=== PATIENT | female | born 1940 | race American Indian/Alaskan Native ===

== ENCOUNTER 2018-02-14 15:56 | Inpatient (IN) | payer MEDICARE ==
--- NOTE | 2018-02-14 17:09 | Cat Scan Report ---
FINAL REPORT PROCEDURE: CT HEAD/BRAIN WO CON TECHNIQUE: Computerized tomography of the head was performed without contrast material. HISTORY: neuro deficits < 6hrs or sx present upon awakening COMPARISON: No prior studies are available for comparison. FINDINGS: Skull and scalp: Normal. Paranasal sinuses: Normal. Ventricles and subarachnoid spaces: Normal. Cerebrum: There is no evidence of acute intracranial hemorrhage, hematoma, infarction, midline displacement or mass. There are a few benign calcifications identified in the basal ganglia bilaterally. Slight atrophy is noted.. Cerebellum and brainstem: No evidence of hemorrhage, acute infarction or mass. Vasculature: Normal. Comments: None. IMPRESSION: There is no evidence of an acute intracranial process.
[2018-02-14 17:33] LABS: Basophils % (Auto) 0.7 % (0.0-1.8); Eosinophils # (Auto) 0.1 K/mm3 (0.0-0.4); Eosinophils % (Auto) 1.2 % (0.0-4.3); Hematocrit 37.5 % (30.3-42.9); Hemoglobin 12.4 gm/dl (10.1-14.3); Lymphocytes % (Auto) 30.1 % (13.4-35.0); Mean Corpuscular HGB Conc 33 % (30-34); Mean Corpuscular Hemoglobin 29 pg (28-32); Mean Corpuscular Volume 87 fl (79-97); Monocytes # (Auto) 0.5 K/mm3 (0.0-0.8); Monocytes % (Auto) 8.2 % (0.0-7.3); Platelet Count 246 K/mm3 (140-440); Red Blood Count 4.31 M/mm3 (3.65-5.03); Red Cell Distribution Width 12.7 % (13.2-15.2)
[2018-02-14 17:49] LABS: BUN/Creatinine Ratio 17; Blood Urea Nitrogen 12 mg/dL (7-17); Calcium 9.4 mg/dL (8.4-10.2); Hemolysis Index 21
[2018-02-14 17:53] LABS: Partial Thromboplastin Time 31.1 Sec. (24.2-36.6)
--- NOTE | 2018-02-14 18:17 | Emergency Department Report ---
ED Neuro Deficit HPI - General Chief Complaint: Neuro Symptoms/Deficit Stated Complaint: RAVEN/HARD TO SWALLOW Time Seen by Provider: 02/14/18 17:46 Source: EMS Mode of arrival: Stretcher Limitations: Physical Limitation - History of Present Illness Initial Comments: Pt is a 77 yo female with a history of diabetes and vertigo who presents with difficulty swallowing, dizziness, and left facial droop. Pt states she had been seen at [facility] and was discharged with Meclizine . Pt noted that the difficulty swallowing became worse last pm. Pt states initially she had difficulty with solids but was able to keep liquids down, but then noted that she was unable to keep down liquids. That is what brought pt in. Pt states she had no change in speech or peripheral weakness. -: Gradual - Related Data Home Medications: Home Medications Medication Instructions Recorded Confirmed Last Taken Meclizine [Antivert] 25 mg PO TID PRN 02/17/18 02/17/18 Unknown Metformin HCl [Metformin HCl ER] 750 mg PO BID 02/17/18 02/18/18 Unknown glipiZIDE XL [Glucotrol Xl] 10 mg PO DAILY 02/17/18 02/19/18 3 Days Ago ~02/16/18 Allergies/Adverse Reactions: Allergies Allergy/AdvReac Type Severity Reaction Status Date / Time acetaminophen AdvReac Vomiting Verified 02/14/18 16:32 [From Darvocet-N] propoxyphene [From Darvon] AdvReac Nausea Verified 02/14/18 16:32 ED Review of Systems ROS: Stated complaint: RAVEN/HARD TO SWALLOW Other details as noted in HPI ED Past Medical Hx - Past Medical History Previous Medical History?: Yes Hx Hypertension: Yes Hx Diabetes: Yes Additional medical history: Hx vertigo - Surgical History Past Surgical History?: Yes Additional Surgical History: Rt Lumpectomy; hysterectomy - Social History Smoking Status: Never Smoker Substance Use Type: Alcohol - Medications Home Medications: Home Medications Medication Instructions Recorded Confirmed Last Taken Type Meclizine [Antivert] 25 mg PO TID PRN 02/17/18 02/17/18 Unknown History Metformin HCl [Metformin HCl ER] 750 mg PO BID 02/17/18 02/18/18 Unknown History glipiZIDE XL [Glucotrol Xl] 10 mg PO DAILY 02/17/18 02/19/18 3 Days Ago History ~02/16/18 ED Neuro Physical Exam - General Limitations: Physical Limitation General appearance: alert - Head Head exam: Present: atraumatic, normocephalic - Eye Eye exam: Present: normal appearance, PERRL, EOMI - ENT ENT exam: Present: mucous membranes moist - Neck Neck exam: Present: normal inspection - Respiratory Respiratory exam: Present: normal lung sounds bilaterally. Absent: respiratory distress, wheezes, rales, rhonchi - GI/Abdominal GI/Abdominal exam: Present: soft, normal bowel sounds. Absent: distended, tenderness, guarding, rebound - Extremities Exam Extremities exam: Present: normal inspection, full ROM - Back Exam Back exam: Present: normal inspection - Neurological Exam Neurological exam: Present: alert, oriented X3, other (CN 7 palsy; gait not tested) - NIHSS 1a. Level of Consciousness: alert 1b. LOC Questions: answers correctly 1c. LOC Commands: performs tasks correctly 2. Best Gaze: normal 3. Visual: no visual loss 4. Facial Palsy: complete paralysis 5b. Motor Arm Right: no drift 5a. Motor Arm Left: no drift 6a. Motor Leg Left: no drift 6b. Motor Leg Right: no drift 7. Limb Ataxia: absent 8. Sensory: normal 9. Best Language: no aphasia 10. Dysarthria: normal 11. Extinction/Inattention: no abnormality Total Score: 3 Stroke Severity: Minor Stroke - Psychiatric Psychiatric exam: Present: normal affect, normal mood. Absent: homicidal ideation, suicidal ideation - Skin Skin exam: Present: warm, dry, intact, normal color ED Course Vital Signs 02/14/18 02/14/18 02/14/18 16:06 16:15 16:16 Temperature 98.3 F Pulse Rate 66 65 Pulse Rate [ Apical] Pulse Rate [ From Monitor] Respiratory 12 24 Rate Blood Pressure 149/67 158/66 Blood Pressure 158/66 [Left] O2 Sat by Pulse 89 98 100 Oximetry 02/14/18 02/14/18 02/14/18 16:29 16:30 16:58 Temperature 98.3 F Pulse Rate 65 64 Pulse Rate [ Apical] Pulse Rate [ From Monitor] Respiratory 24 13 Rate Blood Pressure 158/66 150/64 150/64 Blood Pressure 158/66 [Left] O2 Sat by Pulse 100 96 Oximetry 02/14/18 02/14/18 02/14/18 17:00 17:15 17:30 Temperature Pulse Rate 65 62 66 Pulse Rate [ Apical] Pulse Rate [ From Monitor] Respiratory 17 19 18 Rate Blood Pressure 150/60 148/62 148/62 Blood Pressure [Left] O2 Sat by Pulse 100 97 100 Oximetry 02/14/18 02/14/18 02/14/18 17:45 18:00 18:15 Temperature Pulse Rate 69 64 64 Pulse Rate [ Apical] Pulse Rate [ From Monitor] Respiratory 12 10 L 25 H Rate Blood Pressure 111/65 113/62 124/61 Blood Pressure [Left] O2 Sat by Pulse 100 100 99 Oximetry 02/14/18 02/14/18 02/14/18 18:30 18:46 19:00 Temperature Pulse Rate 80 75 63 Pulse Rate [ Apical] Pulse Rate [ From Monitor] Respiratory 17 15 19 Rate Blood Pressure 145/64 153/71 152/68 Blood Pressure [Left] O2 Sat by Pulse 90 99 98 Oximetry 02/14/18 02/14/1818 19:15 19:30 19:46 Temperature Pulse Rate 62 63 63 Pulse Rate [ Apical] Pulse Rate [ From Monitor] Respiratory 17 16 19 Rate Blood Pressure 141/66 131/76 121/67 Blood Pressure [Left] O2 Sat by Pulse 97 84 97 Oximetry 02/14/1818 02/14/18 20:00 20:16 20:30 Temperature Pulse Rate 71 66 64 Pulse Rate [ Apical] Pulse Rate [ From Monitor] Respiratory 13 12 17 Rate Blood Pressure 121/67 186/79 147/65 Blood Pressure [Left] O2 Sat by Pulse 73 L 88 98 Oximetry 02/14/18 02/14/18 02/14/18 20:45 21:00 21:16 Temperature Pulse Rate 60 64 63 Pulse Rate [ Apical] Pulse Rate [ From Monitor] Respiratory 18 16 22 Rate Blood Pressure 132/72 131/71 124/76 Blood Pressure [Left] O2 Sat by Pulse 99 86 97 Oximetry 02/14/18 02/14/18 02/14/18 21:30 21:45 22:00 Temperature Pulse Rate 63 62 64 Pulse Rate [ Apical] Pulse Rate [ From Monitor] Respiratory 17 15 16 Rate Blood Pressure 146/65 138/62 129/61 Blood Pressure [Left] O2 Sat by Pulse 98 98 Oximetry 02/14/18 02/14/18 02/14/18 22:16 22:30 22:45 Temperature Pulse Rate 73 71 63 Pulse Rate [ Apical] Pulse Rate [ From Monitor] Respiratory 22 18 15 Rate Blood Pressure 110/89 143/63 155/68 Blood Pressure [Left] O2 Sat by Pulse 97 99 95 Oximetry 02/14/18 02/14/18 02/14/18 23:00 23:15 23:30 Temperature Pulse Rate 65 70 71 Pulse Rate [ Apical] Pulse Rate [ From Monitor] Respiratory 19 9 L 12 Rate Blood Pressure 157/71 139/75 146/71 Blood Pressure [Left] O2 Sat by Pulse 98 63 L 92 Oximetry 02/14/18 02/15/18 02/15/18 23:45 00:00 00:15 Temperature Pulse Rate 61 63 59 L Pulse Rate [ Apical] Pulse Rate [ From Monitor] Respiratory 18 16 17 Rate Blood Pressure 157/71 152/69 140/62 Blood Pressure [Left] O2 Sat by Pulse 98 100 97 Oximetry 02/15/18 02/15/18 02/15/18 00:30 00:45 01:00 Temperature Pulse Rate 69 67 63 Pulse Rate [ Apical] Pulse Rate [ From Monitor] Respiratory 18 16 15 Rate Blood Pressure 149/58 148/68 151/71 Blood Pressure [Left] O2 Sat by Pulse 100 99 95 Oximetry 02/15/18 02/15/18 02/15/18 01:05 01:15 01:30 Temperature Pulse Rate 85 60 63 Pulse Rate [ Apical] Pulse Rate [ From Monitor] Respiratory 16 17 Rate Blood Pressure 141/65 139/66 Blood Pressure [Left] O2 Sat by Pulse 96 92 Oximetry 02/15/18 02/15/18 01:45 02:00 Temperature Pulse Rate 68 Pulse Rate [ 85 Apical] Pulse Rate [ 85 From Monitor] Respiratory 15 18 Rate Blood Pressure 132/73 Blood Pressure [Left] O2 Sat by Pulse 93 Oximetry - Lab Data Result diagrams: 02/16/18 06:07 02/16/18 06:07 Lab Results 02/14/18 02/14/18 02/14/18 Range/Units 17:12 17:12 17:12 WBC 6.6 (4.5-11.0) K/mm3 RBC 4.31 (3.65-5.03) M/mm3 Hgb 12.4 (10.1-14.3) gm/dl Hct 37.5 (30.3-42.9) % MCV 87 (79-97) fl MCH 29 (28-32) pg MCHC 33 (30-34) % RDW 12.7 L (13.2-15.2) % Plt Count 246 (140-440) K/mm3 Lymph % (Auto) 30.1 (13.4-35.0) % [place] % (Auto) 8.2 H (0.0-7.3) % Eos % (Auto) 1.2 (0.0-4.3) % Baso % (Auto) 0.7 (0.0-1.8) % Lymph # 2.0 (1.2-5.4) K/mm3 [place] # 0.5 (0.0-0.8) K/mm3 Eos # 0.1 (0.0-0.4) K/mm3 Baso # 0.0 (0.0-0.1) K/mm3 Seg Neutrophils % 59.8 (40.0-70.0) % Seg Neutrophils # 4.0 (1.8-7.7) K/mm3 PT 12.0 L (12.2-14.9) Sec. INR 0.85 L (0.87-1.13) APTT 31.1 (24.2-36.6) Sec. Thrombin Time (15.1-19.6) Sec. Sodium 138 (137-145) mmol/L Potassium 4.2 (3.6-5.0) mmol/L Chloride 99.3 (98-107) mmol/L Carbon Dioxide 22 (22-30) mmol/L Anion Gap 21 mmol/L BUN 12 (7-17) mg/dL Creatinine 0.7 (0.7-1.2) mg/dL Estimated GFR > 60 ml/min BUN/Creatinine Ratio 17 % Glucose 208 H (65-100) mg/dL POC Glucose (70-105) Hemoglobin A1c (4-6) % Calcium 9.4 (8.4-10.2) mg/dL Troponin T < 0.010 (0.00-0.029) ng/mL 02/14/18 02/14/18 02/14/18 Range/Units 17:12 17:12 17:14 WBC (4.5-11.0) K/mm3 RBC (3.65-5.03) M/mm3 Hgb (10.1-14.3) gm/dl Hct (30.3-42.9) % MCV (79-97) fl MCH (28-32) pg MCHC (30-34) % RDW (13.2-15.2) % Plt Count (140-440) K/mm3 Lymph % (Auto) (13.4-35.0) % [place] % (Auto) (0.0-7.3) % Eos % (Auto) (0.0-4.3) % Baso % (Auto) (0.0-1.8) % Lymph # (1.2-5.4) K/mm3 [place] # (0.0-0.8) K/mm3 Eos # (0.0-0.4) K/mm3 Baso # (0.0-0.1) K/mm3 Seg Neutrophils % (40.0-70.0) % Seg Neutrophils # (1.8-7.7) K/mm3 PT (12.2-14.9) Sec. INR (0.87-1.13) APTT (24.2-36.6) Sec. Thrombin Time 17.3 (15.1-19.6) Sec. Sodium (137-145) mmol/L Potassium (3.6-5.0) mmol/L Chloride (98-107) mmol/L Carbon Dioxide (22-30) mmol/L Anion Gap mmol/L BUN (7-17) mg/dL Creatinine (0.7-1.2) mg/dL Estimated GFR ml/min BUN/Creatinine Ratio % Glucose (65-100) mg/dL POC Glucose 225 H (70-105) Hemoglobin A1c 9.0 H (4-6) % Calcium (8.4-10.2) mg/dL Troponin T (0.00-0.029) ng/mL Critical care attestation.: If time is entered above; I have spent that time in minutes in the direct care of this critically ill patient, excluding procedure time. ED Disposition Disposition: OP ADMIT IP TO THIS HOSP Is pt being admited?: Yes Does the pt Need Aspirin: No Condition: Stable Time of Disposition: 21:03
[2018-02-14 18:45] LABS: INR 0.85 (0.87-1.13)
[2018-02-15] MEDS ORDERED: TYLENOL PO PRN (00:01)
[2018-02-15] MEDS ORDERED: SODIUM CHLORIDE FLUSH SYRINGE 10 ML IV PRN ×2 (00:01→03:35)
--- NOTE | 2018-02-15 00:01 | Event Note ---
Date: 02/14/18 See Dictated H/p in reports PICA -posterior inferior cerebellar artery stroke to be ruled out
[2018-02-15] MEDS ORDERED: APRESOLINE IV PRN (03:35)
[2018-02-15] MEDS: ZOFRAN IV PRN ×3 (04:36→21:58)
[2018-02-15] MEDS: D5NS 1,000 ML IV SCH (04:36)
--- NOTE | 2018-02-15 04:47 | History and Physical Report ---
CHIEF COMPLAINT: 1. Difficulty swallowing. 2. Right-sided facial weakness. 3. Double vision. HISTORY OF PRESENT ILLNESS: A 77-year-old female with history of hypertension, diabetes, presents with right-sided facial weakness, also double vision and with difficulty swallowing. The patient is unable to swallow at all. No dysarthria. The patient has nasal regurgitation of fluids. Also, some ptosis of the left eye. Sudden onset over the last few hours. The patient is a poor historian. PAST MEDICAL HISTORY: As mentioned, significant for hypertension, diabetes, vertigo. PAST SURGICAL HISTORY: Significant for right lumpectomy and hysterectomy. SOCIAL HISTORY: Does not smoke. Alcohol occasionally. FAMILY HISTORY: Significant for hypertension. CURRENT MEDICATIONS: None mentioned. REVIEW OF SYSTEMS: Significant for difficulty swallowing. Right facial weakness, double vision and difficulty walking. Otherwise, review of systems is essentially negative. A 14-point review of systems done, otherwise negative. PHYSICAL EXAMINATION: GENERAL: Elderly female, cooperative during examination. VITAL SIGNS: Blood pressure is 148/68, temperature is 98, pulse is 67, respirations are 16. HEENT: Remarkable for ptosis on the left side, right facial palsy present. Also, difficulty swallowing. Aspirating. No nasal regurgitation or fluids present. NECK: Supple, no lymphadenopathy, no thyromegaly, no carotid artery bruit. LUNGS: Clear to auscultation and percussion. Good air entry. CARDIOVASCULAR: S1, S2 heard. No gallop, no murmur, no rub. Apical impulse in left fifth intercostal space and midclavicular line. ABDOMEN: Soft and benign. Bowel sounds are normal. Hernial orifices are normal. EXTREMITIES: Good pedal pulses. No pedal edema. CENTRAL NERVOUS SYSTEM: Alert and oriented x 4. Right facial palsy present. Left eye ptosis present. 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 Diplopia present on especially towards the right gaze. Not sure the patient is saying it rightly or not. Reflexes are brisk. Gait, slightly ataxic. Cranial nerves are otherwise normal. SKIN: Normal. LABORATORY DATA: Significant for white count of 6600, H and H are 12.4 and 37.5, platelet count is 246,000. Glucose is 208, A1c is 9.0. ASSESSMENT AND PLAN: 1. Acute cerebrovascular accident, probably involving the cerebellar region because of the ataxia and dysphagia and the right facial palsy and Antione syndrome. 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 We will defer to Neurology to make the final diagnosis. Also order MRI/MRA, echocardiogram, and carotid duplex scan. Physical therapy ordered. Occupational therapy ordered. NG tube to be inserted if dysphagia is prolonged and fails a swallow screen. 2. Hypertension. Blood pressure is normal at this point. We will trend the blood pressure and start the patient on losartan if necessary. 3. Diabetes, uncontrolled. A1c is 9.0. Will initiate on NovoLog mix 70/30 at 15 units in the morning, 15 units in the evening. Adjust the dosage accordingly. Accu-Cheks in the meantime. Coverage in the meantime. 4. Deep venous thrombosis prophylaxis, heparin 5000 q. 12. In summary, a stroke workup ordered for MRI/MRA, echocardiogram, and carotid duplex scan. Also, Neurology consult ordered. JOB# [id number] VSM/NTS
[2018-02-15] MEDS: HumaLOG SUB-Q SCH ×4 (06:30→19:01)
--- NOTE | 2018-02-15 11:45 | Progress Note ---
Assessment and Plan Assessment and plan: Mr. Cruz is 77 yo woman with a history of dm type 2 and hypertension who presented with right sided weakness, facial droop, ataxia and difficulty swallowing. CT head unremarkable a1c 9.0 -Suspect acute CVA: continue neurology check, mri pending, Neurology evaluation pending, treat with rectal asa and statin once able to swallow, Echo pending, npo and get speech evaluation -Uncontrolled hypertension: permissive elevated bp -Poorly controlled DM: add ssi, on d5nss due to npo, expected elevated blood glucose, monitor closely dvt prophylaxis: add sq heparin. History Interval history: Patient was seen and examined. Follow-up on current diagnosis of right sided weakness, left facial drop, difficult swallowing. Overnight uneventful. Patient denies any chest pain, shortness breath, nausea/vomiting or severe headaches. Imaging, nursing note, chart, labs and old chart reviewed. Discussed with patient. Hospitalist Physical - Physical exam Narrative exam: GEN: WDWN, NAD, Awake, Alert, Orientated HEENT: NCAT, EOMI, PERRL, OP Clear NECK: supple, no adenopathy, no thyromegaly, no JVD CVS/HEART: RRR, normal S1S2, pulses present bilaterally CHEST/LUNGS: CTA B, Symmetrical chest expansion, good air entry bilaterally GI/Abdomen: soft, NTND, good bowel sounds, no guarding or rebound /Bladder: no suprapubic tenderness, no CVA or paraspinal tenderness EXT/Skin: no c/c/e, no obvious rash MSK: FROM x 4 Neuro: CN 2-12 grossly intact except swallowing, facial droop and abd gait no new focal deficits Psych: calm - Constitutional Vitals: Temp Pulse Resp BP Pulse Ox 97.8 F 62 16 155/71 100 02/15/18 08:02 02/15/18 08:02 02/15/18 08:02 02/15/18 08:02 02/15/18 08:02 Results - Labs CBC & Chem 7: 02/14/18 17:12 02/14/18 17:12 Labs: Laboratory Last Values WBC 6.6 K/mm3 (4.5-11.0) 02/14/18 17:12 RBC 4.31 M/mm3 (3.65-5.03) 02/14/18 17:12 Hgb 12.4 gm/dl (10.1-14.3) 02/14/18 17:12 Hct 37.5 % (30.3-42.9) 02/14/18 17:12 MCV 87 fl (79-97) 02/14/18 17:12 MCH 29 pg (28-32) 02/14/18 17:12 MCHC 33 % (30-34) 02/14/18 17:12 RDW 12.7 % (13.2-15.2) L 02/14/18 17:12 Plt Count 246 K/mm3 (140-440) 02/14/18 17:12 Lymph % (Auto) 30.1 % (13.4-35.0) 02/14/18 17:12 [place] % (Auto) 8.2 % (0.0-7.3) H 02/14/18 17:12 Eos % (Auto) 1.2 % (0.0-4.3) 02/14/18 17:12 Baso % (Auto) 0.7 % (0.0-1.8) 02/14/18 17:12 Lymph # 2.0 K/mm3 (1.2-5.4) 02/14/18 17:12 [place] # 0.5 K/mm3 (0.0-0.8) 02/14/18 17:12 Eos # 0.1 K/mm3 (0.0-0.4) 02/14/18 17:12 Baso # 0.0 K/mm3 (0.0-0.1) 02/14/18 17:12 Seg Neutrophils % 59.8 % (40.0-70.0) 02/14/18 17:12 Seg Neutrophils # 4.0 K/mm3 (1.8-7.7) 02/14/18 17:12 PT 12.0 Sec. (12.2-14.9) L 02/14/18 17:12 INR 0.85 (0.87-1.13) L 02/14/18 17:12 APTT 31.1 Sec. (24.2-36.6) 02/14/18 17:12 Thrombin Time 17.3 Sec. (15.1-19.6) 02/14/18 17:12 Sodium 138 mmol/L (137-145) 02/14/18 17:12 Potassium 4.2 mmol/L (3.6-5.0) 02/14/18 17:12 Chloride 99.3 mmol/L (98-107) 02/14/18 17:12 Carbon Dioxide 22 mmol/L (22-30) 02/14/18 17:12 Anion Gap 21 mmol/L 02/14/18 17:12 BUN 12 mg/dL (7-17) 02/14/18 17:12 Creatinine 0.7 mg/dL (0.7-1.2) 02/14/18 17:12 Estimated GFR > 60 ml/min 02/14/18 17:12 BUN/Creatinine Ratio 17 % 02/14/18 17:12 Glucose 208 mg/dL (65-100) H 02/14/18 17:12 POC Glucose 225 (70-105) H 02/14/18 17:14 Hemoglobin A1c 9.0 % (4-6) H 02/14/18 17:12 Calcium 9.4 mg/dL (8.4-10.2) 02/14/18 17:12 Troponin T < 0.010 ng/mL (0.00-0.029) 02/14/18 17:12
[2018-02-15] MEDS: SODIUM CHLORIDE FLUSH SYRINGE 10 ML IV SCH ×2 (13:28→21:49)
[2018-02-15] MEDS: ASPIRIN PR SCH (13:29)
--- NOTE | 2018-02-15 14:42 | Magnetic Resonance Report ---
MRI OF THE BRAIN WITHOUT CONTRAST: HISTORY: CVA PROCEDURE: Multiplanar, multisequence MR imaging of the brain without IV contrast was performed. FINDINGS: Compared to the CT head dated 02/14/18. A 4 x 8mm focus of diffusion restriction is identified in the posterior left jaguar on diffusion image 11. No additional areas of diffusion restriction are identified. The remaining brain parenchyma is within normal limits on all sequences. Mild cortical atrophy is noted which appears age-appropriate. No evidence for hemorrhage, mass, chronic infarct or extra-axial fluid collection. The midline structures are central. The basal cisterns are patent. Normal ventricular size. The orbital cavities and sella turcica demonstrate no abnormality. The visualized paranasal sinuses and mastoid air cells are well aerated. IMPRESSION: Subacute lacunar infarct in the left jaguar. Mild cortical atrophy.
--- NOTE | 2018-02-15 14:43 | Magnetic Resonance Report ---
MRA HEAD WITHOUT CONTRAST HISTORY: Stroke. [id number] imaging with MIP reformations of the [place] of [place] is submitted. NASCET criteria were utilized. The arteries appear patent and free of hemodynamically significant stenosis, aneurysm or dissection. Moderate atherosclerotic disease is suspected in the supraclinoid ICAs and proximal right EDGER TAILER. IMPRESSION: No large vessel occlusion or aneurysm is identified.
--- NOTE | 2018-02-15 15:40 | Consultation ---
History of Present Illness Consult date: 02/15/18 Requesting physician: GERMAN GUSMAN Reason for Consult: stroke Chief complaint: dysphagia, slurring, facial weakness, left eye ptosis History of present illness: This 77-year-old right-handed -[place] female per Dr. Gusman on admission : "presents with right-sided facial weakness, also double vision and with difficulty swallowing. The patient is unable to swallow at all. No dysarthria. The patient has nasal regurgitation of fluids. Also, some ptosis of the left eye. Sudden onset over the last few hours. The patient is a poor historian." She states on Monday 4 PM while getting shoes measured for her, she felt spinning and thought she might have low blood sugar so she ate some candy. She drove herself home. Vertigo improved such that it only happened if she moved. She went to [facility] however where they did a CT scan that was negative but no MRI, and sent her home. She noticed difficulty swallowing the next morning at 7 AM. She had a swollen left lip from having bitten it a couple of times earlier in the week hitting it by accident when the elastic of her sleeve for lymphedema snapped. Blood pressure machine at home was not working. She began having problems with choking around 3 PM yesterday and called 911 and was taken here. Double vision was only noticed here she says when looking to the right. She has had some slurring of speech which is still present but improved. She's had no new numbness or tingling. She has had some nausea but no real vomiting though continually has to spit up mucus. Echocardiogram with bubbles has been done but not yet read. Duplex of carotids was normal with antegrade vertebral flow. CT scan showed moderate cerebellar and mild to moderate cerebral atrophy and possibly an old lacune in the left internal capsule on my review. MRA shows some narrowing of the right siphon and segmental narrowing in 2 spots of the right posterior cerebral artery and 1 location in the proximal left posterior cerebral artery and then also distally in the left posterior cerebral artery. The left vertebral artery is dominant. MRI shows mild cerebellar and mild to moderate cerebral atrophy but positive for diffusion in the dorsal inferior jaguar medially. No other strokes on FLAIR and negative GRE in this noncontrast scan. Past History Past Medical History: cancer (of breast with lumpectomy and lymph node removal and radiation, causing lymphedema on the right), diabetes (takes metformin and glipizide). 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 denies: smoking, alcohol abuse (none), prescription drug abuse, IV drug use (never illicit drugs) Family history: diabetes (Sr.), other (negative for epilepsy). denies: hypertension, stroke Medications and Allergies Allergies Allergy/AdvReac Type Severity Reaction Status Date / Time acetaminophen AdvReac Vomiting Verified 02/14/18 16:32 [From Darvocet-N] propoxyphene [From Darvon] AdvReac Nausea Verified 02/14/18 16:32 Home Medications Medication Instructions Recorded Confirmed Last Taken Type Unobtainable 02/15/18 02/15/18 Unknown History Active Meds: Active Medications Acetaminophen (Tylenol) 650 mg PO Q4H PRN PRN Reason: Pain MILD(1-3)/Fever >100.5/YOUNG Aspirin (Aspirin) 300 mg [place] QDAY [facility] Last Admin: 02/15/18 13:29 Dose: 300 mg Heparin Sodium (Porcine) (Heparin) 5,000 unit SUB-Q Q12HR [facility] Hydralazine HCl (Apresoline) 5 mg IV Q6H PRN PRN Reason: Keep SBP between 160-185 mm Hg Dextrose/Sodium Chloride (D5ns) 1,000 mls @ 100 mls/hr IV DIRECT SEUN Last Admin: 02/15/18 04:36 Dose: 100 mls/hr Insulin Human Lispro (Humalog) 0 unit SUB-Q Q6HR [facility]; Protocol Last Admin: 02/15/18 13:22 Dose: Not Given Morphine Sulfate (Morphine) 2 mg IV Q4H PRN PRN Reason: Pain, Moderate (4-6) Ondansetron HCl (Zofran) 4 mg IV Q8H PRN PRN Reason: Nausea And Vomiting Last Admin: 02/15/18 13:26 Dose: 4 mg Pravastatin Sodium (Pravachol) 40 mg PO QHS [facility] Sodium Chloride (Sodium Chloride Flush Syringe 10 Ml) 10 ml IV BID [facility] Last Admin: 02/15/18 13:28 Dose: 10 ml Sodium Chloride (Sodium Chloride Flush Syringe 10 Ml) 10 ml IV PRN PRN PRN Reason: LINE FLUSH Sodium Chloride (Sodium Chloride Flush Syringe 10 Ml) 10 ml IV PRN PRN PRN Reason: LINE FLUSH Review of Systems All systems: negative (no headaches or dizziness or snoring though takes a nap for an hour after eating. No dosing at other times and not sleepy driving. Normal memory for age, may misplace things temporarily.) Physical Examination - Vital Signs Vital Signs: Vital Signs Pulse Ox 89 02/14/18 16:06 - Physical Exam Narrative exam: General Appearance: well developed well nourished (per BMI) late 70s - [place] female in [facility], with basin into which she spits from time to time, seen with her son at the bedside. HEENT: atraumatic, normocephalic; no bruits, 2+ Diana without soreness or induration or enlargement, sclerae nonicteric. Oropharynx pink and moist. No TMJ click, no TMJ or sinus soreness to pressure or percussion. Neck: supple, no bruits. Heart: no murmur or extra sounds. Extremities: no clubbing, cyanosis but some lymphedema apparently in the right arm, no peripheral edema in the legs. 2+ right and 1+ left dorsalis pedis pulses. Neurologic Exam: Mental Status: Awake, alert, oriented to 17 of February was that of but knows the day of the week and year, speech is clear, names pen and point of pen , and abstracts well. Names President but not Measurement Supervisor, serial 7's with one error and gives 5+7 = 15, no right-left confusion but substitutes index finger for thumb, gets 2 of 3 objects at 3 minutes, spells WORLD backwards omitting the R and she mentions but then won't try it again. A little slurring on "no ifs ands or buts". Cranial Nerves: mathis full, can't see disc due to inability to fixate well, PERRLA, EOMs full horizontal gaze evoked nystagmus to left lateral gaze with the quick beat to the left and some rotary counter clockwise nystagmus to right superior gaze, vertical diplopia to right lateral and right upward gaze, facial sensation intact to pinprick and light touch, left ptosis but no Antione's, peripheral left facial weakness and face draws over to the right with speech, Rankin is midline, palate rises symmetrically to phonation and gags are positive , shoulder shrug is 5 X 2, tongue protrudes midline. Cerebellar: finger to nose and heel to hardin are normal. Sensory: intact to light touch, pinprick, and vibrations. Double simultaneous stimulation is intact. Motor Exam Upper Extremities: no drift or pronation, Louis intact. Stator Plate Washer are 5 X 2, tone is normal. No atrophy or fasciculations are noted visually. Motor Exam Lower Extremities: no leg lag, quadriceps and anterior tibials and gastrocnemius are 5 X 2. Louis intact. Tone is normal. No atrophy or fasciculations are noted visually. Reflexes: Palmomental, snout and jaw jerk are negative. Triceps, biceps are and brachioradialis are 1 bilaterally. Nesha's is negative bilaterally. Knee jerks are 2 and ankle jerks are 0 bilaterally, remaining 0 right and becoming trace left with reinforcement and without clonus. Toes are upgoing right and downgoing left to Babinski testing. Results - Laboratory Findings CBC and BMP: 02/14/18 17:12 02/14/18 17:12 Abnormal Lab Findings: Abnormal Labs 02/14/18 02/14/18 02/14/18 17:12 17:12 17:12 RDW 12.7 L [place] % (Auto) 8.2 H PT 12.0 L INR 0.85 L Glucose 208 H POC Glucose Hemoglobin A1c 02/14/18 02/14/18 17:12 17:14 RDW [place] % (Auto) PT INR Glucose POC Glucose 225 H Hemoglobin A1c 9.0 H Assessment and Plan Impression: 1. Brainstem stroke 2. Diabetes Plan: 1. MRA of neck with fat sat axial T1 with and without dye to look for evidence of vertebral artery dissection. 2. Rectal aspirin until she can swallow. 3. Modified barium swallow as suggested by speech pathologist, hopefully with the speech pathologist monitoring it. 4. I explained strokes can improve all away out to 2 years but often improve some sooner and pointed out that she is saying her speech has improved. 5. I ordered pravastatin 40 mg to begin once she can swallow safely. Might need higher dose if her LDL is over 180. The goal is to get it to be below 100. 6. I showed her and her son printed images of her stroke. 7. Will order ESR and CRP. 8. Await reading of echo with bubbles. 45 minutes spent with this patient including review of 100s of MRI and MRA images. Will sign off. If MRA neck shows dissection, I will come back to explain that to her. Thank you for an interesting consultation on this unfortunate late 70s lady.
--- NOTE | 2018-02-15 19:53 | Magnetic Resonance Report ---
FINAL REPORT PROCEDURE: MR MRA/MRV NECK WO/W CON TECHNIQUE: MR angiography of the cervical carotid and vertebral arteries was performed after the IV injection of paramagnetic contrast. The source images were reconstructed in various views using maximum intensity projection. HISTORY: stroke COMPARISON: No prior studies are available for comparison. FINDINGS: Common carotid arteries: Normal. Internal carotid arteries: Normal. External carotid arteries: Normal. Vertebral arteries: The right vertebral artery is not visualized/is occluded throughout its course, except just proximal to the basilar artery. IMPRESSION: Nonvisualized/occluded right vertebral artery throughout its course except just proximal to the basilar artery
[2018-02-15] MEDS: PRAVACHOL PO SCH (21:48)
[2018-02-16] MEDS: D5NS 1,000 ML IV SCH (00:10)
[2018-02-16] MEDS: HumaLOG SUB-Q SCH ×3 (06:28→17:14)
[2018-02-16 06:37] LABS: Basophils % (Auto) 0.5 % (0.0-1.8); Eosinophils # (Auto) 0.1 K/mm3 (0.0-0.4); Hematocrit 36.5 % (30.3-42.9); Lymphocytes # (Auto) 2.3 K/mm3 (1.2-5.4); Lymphocytes % (Auto) 37.6 % (13.4-35.0); Mean Corpuscular HGB Conc 33 % (30-34); Mean Corpuscular Hemoglobin 29 pg (28-32); Mean Corpuscular Volume 87 fl (79-97); Monocytes # (Auto) 0.7 K/mm3 (0.0-0.8); Platelet Count 242 K/mm3 (140-440); Red Blood Count 4.18 M/mm3 (3.65-5.03); Red Cell Distribution Width 13.2 % (13.2-15.2)
[2018-02-16 07:08] LABS: Alanine Aminotransferase 11 units/L (7-56); Albumin 3.5 g/dL (3.9-5); BUN/Creatinine Ratio 19; Blood Urea Nitrogen 13 mg/dL (7-17); Calcium 8.8 mg/dL (8.4-10.2); Chol/HDL Ratio 2.85 %; HDL Cholesterol 74 mg/dL (40-59); Hemolysis Index 14; LDL Cholesterol,Direct 127 mg/dL (50-130)
[2018-02-16] MEDS: SODIUM CHLORIDE FLUSH SYRINGE 10 ML IV SCH ×2 (11:50→22:53)
[2018-02-16] MEDS: HEPARIN SUB-Q SCH ×2 (11:50→22:54)
[2018-02-16] MEDS: ASPIRIN PR SCH (11:50)
--- NOTE | 2018-02-16 13:05 | Fluoroscopy Report ---
MODIFIED BARIUM SWALLOW INDICATION: Dysphagia, brainstem stroke. COMPARISON: None similar. FINDINGS: Fluoroscopy with video provided by radiologist for speech therapist to assess the swallowing mechanism. Food items of various consistencies given. Patient though failed to swallow well with vallecular and piriform sinus pooling. Multiple radiopaque dental fillings. Mild cervical spondylosis. One interpretable image recorded. IMPRESSION: Modified barium swallow, as described. Please refer to detailed report from speech pathologist. Thank you for the opportunity to participate in this patient's care.
--- NOTE | 2018-02-16 15:41 | Progress Note ---
Assessment and Plan Assessment and plan: Mr. Cruz is 77 yo woman with a history of dm type 2 and hypertension who presented with right sided weakness, facial droop, ataxia and difficulty swallowing. MR brain; Subacute lacunar infarct in the left jaguar. Mild cortical atrophy. MRA head; No large vessel occlusion or aneurysm is identified. MRA neck; Nonvisualized/occluded right vertebral artery throughout its course except just proximal to the basilar artery a1c 9.0 -acute CVA: , Neurology input appreciated, no dissection on mra neck, treat with rectal asa and statin once able to swallow, Echo unremarkable, continue pt and ot -dysphagia; continue NPO; failed mbs, continue s/s therapy -Uncontrolled hypertension: permissive elevated bp, optimize bp meds -Poorly controlled DM: ssi and lantus, on d5nss due to npo, expected elevated blood glucose, monitor closely dvt prophylaxis: add sq heparin. if no improvement with swallowing by next week, will discuss PEG tube with patient and her son case discussed with patient and son, son is reached at [phone], Roney Cruz History Interval history: The patient reports improvement in facial droop, expressive aphasia has now resolved. She still having dysphasia even to her own saliva Hospitalist Physical - Physical exam Narrative exam: General.: Appears well, no distress, nontoxic HEENT: Moist mucous membranes, extraocular muscles intact, no lymphadenopathy Neck: supple Cardiac: S1-S2 heard Lungs: clear to auscultation bilaterally Abdomen: soft , nontender, nondistended, bowel sounds positive Extremities: no edema clubbing or cyanosis Skin: no rash or lesions Neurologic: Left facial droop, as patient constantly suctioning her mouth due to dysphasia, left ptosis Psych: appropriate behavior, appropriate mood, corporative, judgment intact - Constitutional Vitals: Temp Pulse Resp BP Pulse Ox 97.1 F L 74 18 149/73 100 02/16/18 04:01 02/16/18 10:00 02/16/18 10:00 02/16/18 07:23 02/16/18 10:00 Results - Labs CBC & Chem 7: 02/16/18 06:07 02/16/18 06:07 Labs: Laboratory Last Values WBC 6.0 K/mm3 (4.5-11.0) 02/16/18 06:07 RBC 4.18 M/mm3 (3.65-5.03) 02/16/18 06:07 Hgb 12.0 gm/dl (10.1-14.3) 02/16/18 06:07 Hct 36.5 % (30.3-42.9) 02/16/18 06:07 MCV 87 fl (79-97) 02/16/18 06:07 MCH 29 pg (28-32) 02/16/18 06:07 MCHC 33 % (30-34) 02/16/18 06:07 RDW 13.2 % (13.2-15.2) 02/16/18 06:07 Plt Count 242 K/mm3 (140-440) 02/16/18 06:07 Lymph % (Auto) 37.6 % (13.4-35.0) H 02/16/18 06:07 [place] % (Auto) 11.0 % (0.0-7.3) H 02/16/18 06:07 Eos % (Auto) 2.0 % (0.0-4.3) 02/16/18 06:07 Baso % (Auto) 0.5 % (0.0-1.8) 02/16/18 06:07 Lymph # 2.3 K/mm3 (1.2-5.4) 02/16/18 06:07 [place] # 0.7 K/mm3 (0.0-0.8) 02/16/18 06:07 Eos # 0.1 K/mm3 (0.0-0.4) 02/16/18 06:07 Baso # 0.0 K/mm3 (0.0-0.1) 02/16/18 06:07 Seg Neutrophils % 48.9 % (40.0-70.0) 02/16/18 06:07 Seg Neutrophils # 2.9 K/mm3 (1.8-7.7) 02/16/18 06:07 PT 12.0 Sec. (12.2-14.9) L 02/14/18 17:12 INR 0.85 (0.87-1.13) L 02/14/18 17:12 APTT 31.1 Sec. (24.2-36.6) 02/14/18 17:12 Thrombin Time 17.3 Sec. (15.1-19.6) 02/14/18 17:12 Sodium 141 mmol/L (137-145) 02/16/18 06:07 Potassium 3.7 mmol/L (3.6-5.0) 02/16/18 06:07 Chloride 104.1 mmol/L (98-107) 02/16/18 06:07 Carbon Dioxide 24 mmol/L (22-30) 02/16/18 06:07 Anion Gap 17 mmol/L 02/16/18 06:07 BUN 13 mg/dL (7-17) 02/16/18 06:07 Creatinine 0.7 mg/dL (0.7-1.2) 02/16/18 06:07 Estimated GFR > 60 ml/min 02/16/18 06:07 BUN/Creatinine Ratio 19 % 02/16/18 06:07 Glucose 260 mg/dL (65-100) H 02/16/18 06:07 POC Glucose 216 (70-105) H 02/16/18 13:29 Hemoglobin A1c 9.0 % (4-6) H 02/14/18 17:12 Calcium 8.8 mg/dL (8.4-10.2) 02/16/18 06:07 Magnesium 1.80 mg/dL (1.7-2.3) 02/16/18 06:07 Total Bilirubin 0.60 mg/dL (0.1-1.2) 02/16/18 06:07 AST 14 units/L (5-40) 02/16/18 06:07 ALT 11 units/L (7-56) 02/16/18 06:07 Alkaline Phosphatase 63 units/L (35-129) 02/16/18 06:07 Troponin T < 0.010 ng/mL (0.00-0.029) 02/14/18 17:12 Total Protein 6.7 g/dL (6.3-8.2) 02/16/18 06:07 Albumin 3.5 g/dL (3.9-5) L 02/16/18 06:07 Albumin/Globulin Ratio 1.1 % 02/16/18 06:07 Triglycerides 131 mg/dL (2-149) 02/16/18 06:07 Cholesterol 211 mg/dL (50-199) H 02/16/18 06:07 LDL Cholesterol Direct 127 mg/dL (50-130) 02/16/18 06:07 HDL Cholesterol 74 mg/dL (40-59) H 02/16/18 06:07 Cholesterol/HDL Ratio 2.85 % 02/16/18 06:07
[2018-02-16] MEDS: PRAVACHOL PO SCH (22:52)
[2018-02-16] MEDS: LANTUS SUB-Q SCH (22:52)
[2018-02-16] MEDS: ISOPTO TEARS 0.5% OU SCH (23:04)
[2018-02-16] MEDS: ZOFRAN IV PRN (23:05)
[2018-02-17] MEDS: D5NS 1,000 ML IV SCH ×3 (01:59→23:13)
[2018-02-17] MEDS: HumaLOG SUB-Q SCH ×4 (06:47→17:17)
[2018-02-17] MEDS: ISOPTO TEARS 0.5% OU SCH ×3 (08:00→23:10)
[2018-02-17] MEDS: SODIUM CHLORIDE FLUSH SYRINGE 10 ML IV SCH ×2 (10:56→23:13)
[2018-02-17] MEDS: HEPARIN SUB-Q SCH ×2 (10:56→23:11)
[2018-02-17] MEDS: ASPIRIN PR SCH (10:56)
--- NOTE | 2018-02-17 12:07 | Progress Note ---
Assessment and Plan Assessment and plan: Mr. Cruz is 77 yo woman with a history of dm type 2 and hypertension who presented with right sided weakness, facial droop, ataxia and difficulty swallowing. MR brain; Subacute lacunar infarct in the left jaguar. Mild cortical atrophy. MRA head; No large vessel occlusion or aneurysm is identified. MRA neck; Nonvisualized/occluded right vertebral artery throughout its course except just proximal to the basilar artery carotid dopplers; CAROTID DUPLEX DONE. <50% STENOSIS BILATERALLY BY DOPPLER VELOCITIES. ANTEGRADE VERTEBRAL ARTERY FLOW BILATERALLY. a1c 9.0 -acute CVA: , Neurology input appreciated, no dissection on mra neck, treat with rectal asa and statin once able to swallow, Echo unremarkable, continue pt and ot -dysphagia; continue NPO; failed mbs, continue s/s therapy, refused NG tube today -Uncontrolled hypertension: permissive elevated bp, optimize bp meds IV -Poorly controlled DM: ssi and lantus, on d5nss due to npo, expected elevated blood glucose, monitor closely dvt prophylaxis: sq heparin. if no improvement with swallowing by next week, will discuss PEG tube with patient and her son case discussed with patient and son, son is reached at [phone], Roney Cruz Case managment consulted for acute rehab placement History Interval history: The patient reports improvement in facial droop, expressive aphasia has now resolved. She still having dysphasia even to her own saliva Hospitalist Physical - Physical exam Narrative exam: General.: Appears well, no distress, nontoxic HEENT: Moist mucous membranes, extraocular muscles intact, no lymphadenopathy Neck: supple Cardiac: S1-S2 heard Lungs: clear to auscultation bilaterally Abdomen: soft , nontender, nondistended, bowel sounds positive Extremities: no edema clubbing or cyanosis Skin: no rash or lesions Neurologic: Left facial droop, as patient constantly suctioning her mouth due to dysphasia, left ptosis Psych: appropriate behavior, appropriate mood, corporative, judgment intact - Constitutional Vitals: Temp Pulse Resp BP Pulse Ox 98.5 F 62 18 150/54 100 02/17/18 08:14 02/17/18 08:14 02/17/18 08:14 02/17/18 08:14 02/17/18 08:14 Results - Labs CBC & Chem 7: 02/16/18 06:07 02/16/18 06:07 Labs: Laboratory Last Values WBC 6.0 K/mm3 (4.5-11.0) 02/16/18 06:07 RBC 4.18 M/mm3 (3.65-5.03) 02/16/18 06:07 Hgb 12.0 gm/dl (10.1-14.3) 02/16/18 06:07 Hct 36.5 % (30.3-42.9) 02/16/18 06:07 MCV 87 fl (79-97) 02/16/18 06:07 MCH 29 pg (28-32) 02/16/18 06:07 MCHC 33 % (30-34) 02/16/18 06:07 RDW 13.2 % (13.2-15.2) 02/16/18 06:07 Plt Count 242 K/mm3 (140-440) 02/16/18 06:07 Lymph % (Auto) 37.6 % (13.4-35.0) H 02/16/18 06:07 [place] % (Auto) 11.0 % (0.0-7.3) H 02/16/18 06:07 Eos % (Auto) 2.0 % (0.0-4.3) 02/16/18 06:07 Baso % (Auto) 0.5 % (0.0-1.8) 02/16/18 06:07 Lymph # 2.3 K/mm3 (1.2-5.4) 02/16/18 06:07 [place] # 0.7 K/mm3 (0.0-0.8) 02/16/18 06:07 Eos # 0.1 K/mm3 (0.0-0.4) 02/16/18 06:07 Baso # 0.0 K/mm3 (0.0-0.1) 02/16/18 06:07 Seg Neutrophils % 48.9 % (40.0-70.0) 02/16/18 06:07 Seg Neutrophils # 2.9 K/mm3 (1.8-7.7) 02/16/18 06:07 PT 12.0 Sec. (12.2-14.9) L 02/14/18 17:12 INR 0.85 (0.87-1.13) L 02/14/18 17:12 APTT 31.1 Sec. (24.2-36.6) 02/14/18 17:12 Thrombin Time 17.3 Sec. (15.1-19.6) 02/14/18 17:12 Sodium 141 mmol/L (137-145) 02/16/18 06:07 Potassium 3.7 mmol/L (3.6-5.0) 02/16/18 06:07 Chloride 104.1 mmol/L (98-107) 02/16/18 06:07 Carbon Dioxide 24 mmol/L (22-30) 02/16/18 06:07 Anion Gap 17 mmol/L 02/16/18 06:07 BUN 13 mg/dL (7-17) 02/16/18 06:07 Creatinine 0.7 mg/dL (0.7-1.2) 02/16/18 06:07 Estimated GFR > 60 ml/min 02/16/18 06:07 BUN/Creatinine Ratio 19 % 02/16/18 06:07 Glucose 260 mg/dL (65-100) H 02/16/18 06:07 POC Glucose 260 (70-105) H 02/17/18 05:43 Hemoglobin A1c 9.0 % (4-6) H 02/14/18 17:12 Calcium 8.8 mg/dL (8.4-10.2) 02/16/18 06:07 Magnesium 1.80 mg/dL (1.7-2.3) 02/16/18 06:07 Total Bilirubin 0.60 mg/dL (0.1-1.2) 02/16/18 06:07 AST 14 units/L (5-40) 02/16/18 06:07 ALT 11 units/L (7-56) 02/16/18 06:07 Alkaline Phosphatase 63 units/L (35-129) 02/16/18 06:07 Troponin T < 0.010 ng/mL (0.00-0.029) 02/14/18 17:12 Total Protein 6.7 g/dL (6.3-8.2) 02/16/18 06:07 Albumin 3.5 g/dL (3.9-5) L 02/16/18 06:07 Albumin/Globulin Ratio 1.1 % 02/16/18 06:07 Triglycerides 131 mg/dL (2-149) 02/16/18 06:07 Cholesterol 211 mg/dL (50-199) H 02/16/18 06:07 LDL Cholesterol Direct 127 mg/dL (50-130) 02/16/18 06:07 HDL Cholesterol 74 mg/dL (40-59) H 02/16/18 06:07 Cholesterol/HDL Ratio 2.85 % 02/16/18 06:07
[2018-02-17] MEDS ORDERED: APRESOLINE IV PRN (12:16)
[2018-02-17] MEDS ORDERED: SIMPLE SYRUP FEEDTUBE PRN ×2 (12:55)
[2018-02-17] MEDS ORDERED: PANCREAZE DR 10,500 UNIT FEEDTUBE PRN (12:55)
[2018-02-17] MEDS ORDERED: SODIUM BICARBONATE FEEDTUBE PRN (12:55)
[2018-02-17] MEDS: ZOFRAN IV PRN (20:47)
[2018-02-17] MEDS: LANTUS SUB-Q SCH (23:10)
[2018-02-17] MEDS: PRAVACHOL PO SCH (23:11)
[2018-02-18 00:14] LABS: Bacteria,Urine 1+ /HPF (Negative); Bilirubin,Urine NEG (Negative); Blood,Urine NEG (Negative); Color,Urine Yellow (Yellow); Mucus,Urine 1+ /HPF; Protein,Urine <15 mg/dL mg/dL (Negative); Urobilinogen,Urine < 2.0 mg/dL (<2.0)
[2018-02-18] MEDS: PRAVACHOL PO SCH ×2 (00:14→22:38)
[2018-02-18] MEDS: HumaLOG SUB-Q SCH ×4 (00:14→17:00)
[2018-02-18] MEDS: D5NS 1,000 ML IV SCH ×2 (07:16→16:45)
[2018-02-18] MEDS: ISOPTO TEARS 0.5% OU SCH ×3 (07:56→22:38)
[2018-02-18] MEDS: ASPIRIN PR SCH (10:58)
[2018-02-18] MEDS: HEPARIN SUB-Q SCH ×2 (10:58→22:38)
[2018-02-18] MEDS ORDERED: TYLENOL PR PRN (15:45)
[2018-02-18] MEDS ORDERED: ROCEPHIN/NS 1 GM/50 ML 1 GM/50 ML BAG IV SCH (17:00)
[2018-02-18] MEDS: cefTRIAXone 1 GM in NACL 0.9% 20 ML IV SCH (18:59)
[2018-02-18] MEDS ORDERED: ATIVAN IV PRN (20:01)
[2018-02-18] MEDS: LANTUS SUB-Q SCH (22:38)
[2018-02-18] MEDS: SODIUM CHLORIDE FLUSH SYRINGE 10 ML IV SCH (22:39)
[2018-02-19] MEDS: D5NS 1,000 ML IV SCH ×3 (02:02→23:37)
[2018-02-19] MEDS: HumaLOG SUB-Q SCH ×5 (02:02→23:38)
[2018-02-19] MEDS: MORPHINE IV PRN (02:03)
[2018-02-19] MEDS: ZOFRAN IV PRN (02:03)
--- NOTE | 2018-02-19 03:03 | Progress Note ---
Assessment and Plan Assessment and plan: Mr. Cruz is 77 yo woman with a history of dm type 2 and hypertension who presented with right sided weakness, facial droop, ataxia and difficulty swallowing. MR brain; Subacute lacunar infarct in the left jaguar. Mild cortical atrophy. MRA head; No large vessel occlusion or aneurysm is identified. MRA neck; Nonvisualized/occluded right vertebral artery throughout its course except just proximal to the basilar artery carotid dopplers; CAROTID DUPLEX DONE. <50% STENOSIS BILATERALLY BY DOPPLER VELOCITIES. ANTEGRADE VERTEBRAL ARTERY FLOW BILATERALLY. a1c 9.0 -acute CVA: , Neurology input appreciated, no dissection on mra neck, treat with rectal asa and statin once able to swallow, Echo unremarkable, continue pt and ot -dysphagia; improving, now able to swallow her own saliva, repeat Mbs in am -Uncontrolled hypertension: permissive elevated bp, optimize bp meds IV -Poorly controlled DM: ssi and lantus, on d5nss due to npo, expected elevated blood glucose, monitor closely dvt prophylaxis: sq heparin. if no improvement with swallowing by next week, will discuss PEG tube with patient and her son case discussed with patient and son, son is reached at [phone], Roney Cruz Case managment consulted for acute rehab placement History Interval history: The patient reports improvement in facial droop, expressive aphasia has now resolved. dysphasia even to her own saliva has now resolved she is still complaining of diplopia Hospitalist Physical - Physical exam Narrative exam: General.: Appears well, no distress, nontoxic HEENT: Moist mucous membranes, extraocular muscles intact, no lymphadenopathy Neck: supple Cardiac: S1-S2 heard Lungs: clear to auscultation bilaterally Abdomen: soft , nontender, nondistended, bowel sounds positive Extremities: no edema clubbing or cyanosis Skin: no rash or lesions Neurologic: improvement to Left facial droop, left ptosis is improved Psych: appropriate behavior, appropriate mood, corporative, judgment intact - Constitutional Vitals: Temp Pulse Resp BP Pulse Ox 99.1 F 62 20 156/65 99 02/19/18 00:03 02/19/18 00:03 02/19/18 00:03 02/19/18 00:03 02/19/18 00:03 Results - Labs CBC & Chem 7: 02/16/18 06:07 02/16/18 06:07 Labs: Laboratory Last Values WBC 6.0 K/mm3 (4.5-11.0) 02/16/18 06:07 RBC 4.18 M/mm3 (3.65-5.03) 02/16/18 06:07 Hgb 12.0 gm/dl (10.1-14.3) 02/16/18 06:07 Hct 36.5 % (30.3-42.9) 02/16/18 06:07 MCV 87 fl (79-97) 02/16/18 06:07 MCH 29 pg (28-32) 02/16/18 06:07 MCHC 33 % (30-34) 02/16/18 06:07 RDW 13.2 % (13.2-15.2) 02/16/18 06:07 Plt Count 242 K/mm3 (140-440) 02/16/18 06:07 Lymph % (Auto) 37.6 % (13.4-35.0) H 02/16/18 06:07 [place] % (Auto) 11.0 % (0.0-7.3) H 02/16/18 06:07 Eos % (Auto) 2.0 % (0.0-4.3) 02/16/18 06:07 Baso % (Auto) 0.5 % (0.0-1.8) 02/16/18 06:07 Lymph # 2.3 K/mm3 (1.2-5.4) 02/16/18 06:07 [place] # 0.7 K/mm3 (0.0-0.8) 02/16/18 06:07 Eos # 0.1 K/mm3 (0.0-0.4) 02/16/18 06:07 Baso # 0.0 K/mm3 (0.0-0.1) 02/16/18 06:07 Seg Neutrophils % 48.9 % (40.0-70.0) 02/16/18 06:07 Seg Neutrophils # 2.9 K/mm3 (1.8-7.7) 02/16/18 06:07 PT 12.0 Sec. (12.2-14.9) L 02/14/18 17:12 INR 0.85 (0.87-1.13) L 02/14/18 17:12 APTT 31.1 Sec. (24.2-36.6) 02/14/18 17:12 Thrombin Time 17.3 Sec. (15.1-19.6) 02/14/18 17:12 Sodium 141 mmol/L (137-145) 02/16/18 06:07 Potassium 3.7 mmol/L (3.6-5.0) 02/16/18 06:07 Chloride 104.1 mmol/L (98-107) 02/16/18 06:07 Carbon Dioxide 24 mmol/L (22-30) 02/16/18 06:07 Anion Gap 17 mmol/L 02/16/18 06:07 BUN 13 mg/dL (7-17) 02/16/18 06:07 Creatinine 0.7 mg/dL (0.7-1.2) 02/16/18 06:07 Estimated GFR > 60 ml/min 02/16/18 06:07 BUN/Creatinine Ratio 19 % 02/16/18 06:07 Glucose 260 mg/dL (65-100) H 02/16/18 06:07 POC Glucose 227 (70-105) H 02/18/18 21:40 Hemoglobin A1c 9.0 % (4-6) H 02/14/18 17:12 Calcium 8.8 mg/dL (8.4-10.2) 02/16/18 06:07 Magnesium 1.80 mg/dL (1.7-2.3) 02/16/18 06:07 Total Bilirubin 0.60 mg/dL (0.1-1.2) 02/16/18 06:07 AST 14 units/L (5-40) 02/16/18 06:07 ALT 11 units/L (7-56) 02/16/18 06:07 Alkaline Phosphatase 63 units/L (35-129) 02/16/18 06:07 Troponin T < 0.010 ng/mL (0.00-0.029) 02/14/18 17:12 Total Protein 6.7 g/dL (6.3-8.2) 02/16/18 06:07 Albumin 3.5 g/dL (3.9-5) L 02/16/18 06:07 Albumin/Globulin Ratio 1.1 % 02/16/18 06:07 Triglycerides 131 mg/dL (2-149) 02/16/18 06:07 Cholesterol 211 mg/dL (50-199) H 02/16/18 06:07 LDL Cholesterol Direct 127 mg/dL (50-130) 02/16/18 06:07 HDL Cholesterol 74 mg/dL (40-59) H 02/16/18 06:07 Cholesterol/HDL Ratio 2.85 % 02/16/18 06:07 Urine Color Yellow (Yellow) 02/17/18 23:52 Urine Turbidity Clear (Clear) 02/17/18 23:52 Urine pH 5.0 (5.0-7.0) 02/17/18 23:52 Ur Specific [place] 1.020 (1.003-1.030) 02/17/18 23:52 Urine Protein <15 mg/dl mg/dL (Negative) 02/17/18 23:52 Urine Glucose (UA) Neg mg/dL (Negative) 02/17/18 23:52 Urine Ketones Neg mg/dL (Negative) 02/17/18 23:52 Urine Blood Neg (Negative) 02/17/18 23:52 Urine Nitrite Neg (Negative) 02/17/18 23:52 Urine Bilirubin Neg (Negative) 02/17/18 23:52 Urine Urobilinogen < 2.0 mg/dL (<2.0) 04 23:52 Ur Leukocyte Esterase Lg (Negative) 02/17/18 23:52 Urine WBC (Auto) 27.0 /HPF (0.0-6.0) H 02/17/18 23:52 Urine RBC (Auto) 1.0 /HPF (0.0-6.0) 02/17/18 23:52 U Epithel Cells (Auto) 1.0 /HPF (0-13.0) 02/17/18 23:52 Urine Bacteria (Auto) 1+ /HPF (Negative) 02/17/18 23:52 Urine Mucus 1+ /HPF 02/17/18 23:52
[2018-02-19] MEDS: ISOPTO TEARS 0.5% OU SCH ×3 (08:05→21:29)
--- NOTE | 2018-02-19 10:54 | Fluoroscopy Report ---
MODIFIED BARIUM SWALLOW History: dysphagia. Findings: Video radiography was provided by the radiologist for speech therapy to assess the swallowing mechanism. 1 fluoroscopic image was captured. Impression: Successful modified barium swallow.
[2018-02-19] MEDS: HEPARIN SUB-Q SCH ×2 (12:00→21:29)
[2018-02-19] MEDS: ASPIRIN PR SCH (12:00)
[2018-02-19] MEDS: SODIUM CHLORIDE FLUSH SYRINGE 10 ML IV SCH ×2 (12:06→21:29)
--- NOTE | 2018-02-19 16:03 | Progress Note ---
Subjective Date of service: 02/19/18 Objective - Constitutional Vitals: Vital Signs - 12hr 02/19/18 02/19/18 02/19/18 04:43 06:59 08:00 Temperature 98.9 F 98.9 F 97.7 F Pulse Rate 53 L 57 L 56 L Respiratory 20 20 20 Rate Blood Pressure 148/54 Blood Pressure 150/46 148/54 [Left] O2 Sat by Pulse 99 98 98 Oximetry 02/19/18 02/19/18 10:58 11:57 Temperature 98.3 F 98.3 F Pulse Rate 54 L 55 L Respiratory 20 22 Rate Blood Pressure 132/42 Blood Pressure 132/42 [Left] O2 Sat by Pulse 100 100 Oximetry General appearance: Present: no acute distress, well-nourished - EENT Eyes: PERRL, EOM intact ENT: hearing intact, clear oral mucosa Ears: bilateral: normal - Neck Neck: supple, normal ROM - Respiratory Respiratory effort: normal Respiratory: bilateral: CTA - Breasts Breasts: normal - Cardiovascular Rhythm: regular Heart Sounds: Present: S1 & S2. Absent: gallop, rub Extremities: pulses intact, No edema, normal color, Full ROM - Gastrointestinal General gastrointestinal: Present: soft, non-tender, non-distended, normal bowel sounds - Genitourinary Female genitourinary: normal - Integumentary Integumentary: clear, warm, dry - Musculoskeletal Musculoskeletal: 1, strength equal bilaterally - Neurologic Neurologic: moves all extremities - Psychiatric Psychiatric: memory intact, appropriate mood/affect, intact judgment & insight - Labs CBC & Chem 7: 02/16/18 06:07 02/16/18 06:07 Labs: Abnormal lab results 02/18/18 02/18/18 02/19/18 Range/Units 16:02 21:40 05:57 POC Glucose 230 H 227 H 222 H (70-105) 02/19/18 Range/Units 11:09 POC Glucose 186 H (70-105)
[2018-02-19] MEDS: cefTRIAXone 1 GM in NACL 0.9% 20 ML IV SCH (17:32)
[2018-02-19] MEDS: LANTUS SUB-Q SCH (21:30)
[2018-02-19] MEDS: PRAVACHOL PO SCH (21:30)
[2018-02-20] MEDS: HumaLOG SUB-Q SCH ×4 (05:42→23:00)
[2018-02-20] MEDS: MORPHINE IV PRN (05:43)
[2018-02-20] MEDS: ZOFRAN IV PRN (05:43)
[2018-02-20] MEDS: ISOPTO TEARS 0.5% OU SCH ×2 (08:51→13:34)
[2018-02-20] MEDS: D5NS 1,000 ML IV SCH ×2 (08:53→18:59)
[2018-02-20] MEDS: HEPARIN SUB-Q SCH ×2 (11:00→22:55)
[2018-02-20] MEDS: SODIUM CHLORIDE FLUSH SYRINGE 10 ML IV SCH ×2 (11:00→12:52)
[2018-02-20] MEDS: ASPIRIN PR SCH (11:00)
--- NOTE | 2018-02-20 15:40 | Progress Note ---
Assessment and Plan Assessment and plan: Mr. Cruz is 77 yo woman with a history of dm type 2 and hypertension who presented with right sided weakness, facial droop, ataxia and difficulty swallowing. MR brain; Subacute lacunar infarct in the left jaguar. Mild cortical atrophy. MRA head; No large vessel occlusion or aneurysm is identified. MRA neck; Nonvisualized/occluded right vertebral artery throughout its course except just proximal to the basilar artery carotid dopplers; CAROTID DUPLEX DONE. <50% STENOSIS BILATERALLY BY DOPPLER VELOCITIES. ANTEGRADE VERTEBRAL ARTERY FLOW BILATERALLY. a1c 9.0 Acute CVA Neurology input appreciated, no dissection on mra neck, treat with rectal asa and statin once able to swallow, Echo unremarkable, continue pt and ot Dysphagia improving, now able to tolerate liquid diet after MBS Hypertension Permissive elevated bp, Hydralazine for BP >160/100 Poorly controlled DM ssi and lantus, on d5nss due to npo, expected elevated blood glucose, monitor closely dvt prophylaxis sq heparin. case discussed with patient and son, son is reached at [phone], Roney Cruz History Interval history: Patient seen and examined. She is continuing to improve, drank juice and ate applesauce today. No new events. Labs and nursing notes reviewed. Hospitalist Physical - Constitutional Vitals: Temp Pulse Resp BP Pulse Ox 98.8 F 57 L 18 146/50 99 02/20/18 12:36 02/20/18 12:36 02/20/18 12:36 02/20/18 12:36 02/20/18 12:36 General appearance: Present: no acute distress, well-nourished - EENT Eyes: Present: PERRL, EOM intact ENT: hearing intact, clear oral mucosa - Neck Neck: Present: supple, normal ROM - Respiratory Respiratory effort: normal Respiratory: bilateral: CTA - Cardiovascular Rhythm: regular Heart Sounds: Present: S1 & S2 - Extremities Extremities: no ischemia, No edema, normal temperature - Abdominal General gastrointestinal: soft, non-tender, non-distended, normal bowel sounds - Integumentary Integumentary: Present: clear, warm, dry - Psychiatric Psychiatric: appropriate mood/affect, intact judgment & insight, cooperative - Neurologic Neurologic: moves all extremities, other (Left facial droop, left ptosis) Results - Labs CBC & Chem 7: 02/16/18 06:07 02/16/18 06:07 Labs: Laboratory Last Values WBC 6.0 K/mm3 (4.5-11.0) 02/16/18 06:07 RBC 4.18 M/mm3 (3.65-5.03) 02/16/18 06:07 Hgb 12.0 gm/dl (10.1-14.3) 02/16/18 06:07 Hct 36.5 % (30.3-42.9) 02/16/18 06:07 MCV 87 fl (79-97) 02/16/18 06:07 MCH 29 pg (28-32) 02/16/18 06:07 MCHC 33 % (30-34) 02/16/18 06:07 RDW 13.2 % (13.2-15.2) 02/16/18 06:07 Plt Count 242 K/mm3 (140-440) 02/16/18 06:07 Lymph % (Auto) 37.6 % (13.4-35.0) H 02/16/18 06:07 [place] % (Auto) 11.0 % (0.0-7.3) H 02/16/18 06:07 Eos % (Auto) 2.0 % (0.0-4.3) 02/16/18 06:07 Baso % (Auto) 0.5 % (0.0-1.8) 02/16/18 06:07 Lymph # 2.3 K/mm3 (1.2-5.4) 02/16/18 06:07 [place] # 0.7 K/mm3 (0.0-0.8) 02/16/18 06:07 Eos # 0.1 K/mm3 (0.0-0.4) 02/16/18 06:07 Baso # 0.0 K/mm3 (0.0-0.1) 02/16/18 06:07 Seg Neutrophils % 48.9 % (40.0-70.0) 02/16/18 06:07 Seg Neutrophils # 2.9 K/mm3 (1.8-7.7) 02/16/18 06:07 PT 12.0 Sec. (12.2-14.9) L 02/14/18 17:12 INR 0.85 (0.87-1.13) L 02/14/18 17:12 APTT 31.1 Sec. (24.2-36.6) 02/14/18 17:12 Thrombin Time 17.3 Sec. (15.1-19.6) 02/14/18 17:12 Sodium 141 mmol/L (137-145) 02/16/18 06:07 Potassium 3.7 mmol/L (3.6-5.0) 02/16/18 06:07 Chloride 104.1 mmol/L (98-107) 02/16/18 06:07 Carbon Dioxide 24 mmol/L (22-30) 02/16/18 06:07 Anion Gap 17 mmol/L 02/16/18 06:07 BUN 13 mg/dL (7-17) 02/16/18 06:07 Creatinine 0.7 mg/dL (0.7-1.2) 02/16/18 06:07 Estimated GFR > 60 ml/min 02/16/18 06:07 BUN/Creatinine Ratio 19 % 02/16/18 06:07 Glucose 260 mg/dL (65-100) H 02/16/18 06:07 POC Glucose 252 (70-105) H 02/20/18 12:41 Hemoglobin A1c 9.0 % (4-6) H 02/14/18 17:12 Calcium 8.8 mg/dL (8.4-10.2) 02/16/18 06:07 Magnesium 1.80 mg/dL (1.7-2.3) 02/16/18 06:07 Total Bilirubin 0.60 mg/dL (0.1-1.2) 02/16/18 06:07 AST 14 units/L (5-40) 02/16/18 06:07 ALT 11 units/L (7-56) 02/16/18 06:07 Alkaline Phosphatase 63 units/L (35-129) 02/16/18 06:07 Troponin T < 0.010 ng/mL (0.00-0.029) 02/14/18 17:12 Total Protein 6.7 g/dL (6.3-8.2) 02/16/18 06:07 Albumin 3.5 g/dL (3.9-5) L 02/16/18 06:07 Albumin/Globulin Ratio 1.1 % 02/16/18 06:07 Triglycerides 131 mg/dL (2-149) 02/16/18 06:07 Cholesterol 211 mg/dL (50-199) H 02/16/18 06:07 LDL Cholesterol Direct 127 mg/dL (50-130) 02/16/18 06:07 HDL Cholesterol 74 mg/dL (40-59) H 02/16/18 06:07 Cholesterol/HDL Ratio 2.85 % 02/16/18 06:07 Urine Color Yellow (Yellow) 02/17/18 23:52 Urine Turbidity Clear (Clear) 02/17/18 23:52 Urine pH 5.0 (5.0-7.0) 02/17/18 23:52 Ur Specific [place] 1.020 (1.003-1.030) 02/17/18 23:52 Urine Protein <15 mg/dl mg/dL (Negative) 02/17/18 23:52 Urine Glucose (UA) Neg mg/dL (Negative) 02/17/18 23:52 Urine Ketones Neg mg/dL (Negative) 02/17/18 23:52 Urine Blood Neg (Negative) 02/17/18 23:52 Urine Nitrite Neg (Negative) 02/17/18 23:52 Urine Bilirubin Neg (Negative) 02/17/18 23:52 Urine Urobilinogen < 2.0 mg/dL (<2.0) 02/17/18 23:52 Ur Leukocyte Esterase Lg (Negative) 02/17/18 23:52 Urine WBC (Auto) 27.0 /HPF (0.0-6.0) H 02/17/18 23:52 Urine RBC (Auto) 1.0 /HPF (0.0-6.0) 02/17/18 23:52 U Epithel Cells (Auto) 1.0 /HPF (0-13.0) 02/17/18 23:52 Urine Bacteria (Auto) 1+ /HPF (Negative) 02/17/18 23:52 Urine Mucus 1+ /HPF 02/17/18 23:52
[2018-02-20] MEDS: cefTRIAXone 1 GM in NACL 0.9% 20 ML IV SCH (17:51)
[2018-02-20] MEDS: LANTUS SUB-Q SCH (22:50)
[2018-02-20] MEDS: PRAVACHOL PO SCH (22:54)
[2018-02-21 05:06] VITALS: BP 152/54
[2018-02-21] MEDS: ISOPTO TEARS 0.5% OU SCH ×2 (05:21→09:00)
[2018-02-21] MEDS: D5NS 1,000 ML IV SCH (05:21)
[2018-02-21] MEDS: SODIUM CHLORIDE FLUSH SYRINGE 10 ML IV SCH ×2 (05:22→09:00)
[2018-02-21] MEDS: HumaLOG SUB-Q SCH ×2 (07:27→12:00)
[2018-02-21] MEDS: HEPARIN SUB-Q SCH (09:00)
[2018-02-21] MEDS: ASPIRIN PR SCH (09:00)
--- NOTE | 2018-02-21 14:48 | Discharge Summary ---
Providers - Providers Date of Admission: 02/15/18 00:01 Date of discharge: 02/21/18 Attending physician: GERMAN GUSMAN 02/15/18 02:18 Speech Therapy Evaluation and Treat [CONS] Routine Reason For Exam: failed screen 02/15/18 03:35 Occupational Therapy Evaluate and Treat [CONS] Routine Comment: Reason For Exam: Neuro deficits Physical Therapy Evaluation and Treat [CONS] Routine Comment: Reason For Exam: Neuro deficits 02/15/18 03:39 Consult to Physician [CONS] Routine Comment: Consulting Provider: LINO MCKENNA Physician Instructions: Reason For Exam: CVA/PICA 02/17/18 12:18 Consult to Dietitian/Nutrition [CONS] Routine Physician Instructions: Reason For Exam: Reason for Consult: Write/Manage Tube Feeding 02/18/18 20:00 Consult to Case Management [CONS] Routine Services Needed at Discharge: 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
[2018-02-21] MEDS ORDERED: PRAVACHOL PO SCH (22:00)
== END 2018-02-21 15:05 | DRG 66 ==
LOC: ED 15:56 → 4A 02-15 00:01
PROVIDERS: ADMIT Internal Medicine; ATTEND Internal Medicine
DX: I63.9 Cerebral infarction, unspecified (principal); I10 Essential (primary) hypertension; H53.2 Diplopia; R13.10 Dysphagia, unspecified; E11.9 Type 2 diabetes mellitus without complications; Z88.1 Allergy status to other antibiotic agents; Z90.49 Acquired absence of other specified parts of digestive tract; Z90.710 Acquired absence of both cervix and uterus; Z82.49 Family history of ischemic heart disease and other diseases of the circulatory system
CPT/HCPCS: 36415; 70450; 70544; 70549; 70551; 74230; 80048; 80053; 80061; 81001; 82962; 83036; 83735; 84484; 85025; 85610; 85670; 85730; 87086; 93005; 93010; 93308; 93321; 93325; 93880; A9270-GY; A9577; G8987-GO; G8988-GO; G8996-GN; G8997-GN; J0696; J1644; J1815; J2060; J2270; J2405; J7042